=== PATIENT | female | born 1980 | race Two or more races ===

== ENCOUNTER 2020-11-04 06:05 | Emergency (ER) | payer SELFPAY ==
[~2020-11-04] VITALS: Ht 160 cm; Wt 60.0 kg
[2020-11-04 07:24] LABS: CHLORIDE 106 mEq/L (98-107)
[2020-11-04 07:29] LABS: BASOPHILS % 0.4 % (0.0-2.0); EOSINOPHILS % 1.6 % (0.0-5.0); HEMATOCRIT. 35.7 % (36.0-48.0); HEMOGLOBIN. 12.3 g/dL (12.0-16.0); MEAN CORPUSCULAR HEMOGLOBIN 29.1 pg (28.0-32.0); MEAN CORPUSCULAR VOLUME 84.9 fL (81.0-99.0); MEAN PLATELET VOLUME 7.4 fl (7.4-10.4); MONOCYTES % 6.2 % (2.0-8.0); NEUTROPHILS % 65.8 % (40.0-76.0); PLATELET 255 x1000/uL (130-400); RED CELL DISTRIBUTION WIDTH 13.4 % (11.6-14.6)
[2020-11-04 07:49] LABS: B-HCG QUANTITATIVE 10740 mIU/mL (<3)
[2020-11-04] MEDS ORDERED: TOPUD PO (08:50)
[2020-11-04] MEDS ORDERED: ACETAMINOPHEN 325MG TABLET PO ONE (09:00)
[2020-11-04 09:02] LABS: KETONES URINE 1+ (NEGATIVE); LEUKOCYTE ESTERASE URINE 2+ (NEGATIVE); NITRITE URINE POSITIVE (NEGATIVE); OCCULT BLOOD URINE 3+ (NEGATIVE); PH URINE 6.5 (4.5-8.0); PROTEIN URINE 4+ (NEGATIVE); SPECIFIC GRAVITY URINE 1.015 (1.005-1.030)
[2020-11-04 09:06] LABS: CLARITY URINE TURBID (CLEAR); COLOR URINE BLOODY (YELLOW)
[2020-11-04 09:30] VITALS: BP 108/56
== END 2020-11-04 10:39 | disposition home or self-care (01) ==
LOC: ER 06:05
DX: O03.9 Complete or unspecified spontaneous abortion without complication (principal)
CPT/HCPCS: 36415; 76801; 76817; 80053; 81003; 81025; 84702; 85025; 86850; 86900; 86901; 99284; Z7610